=== PATIENT | male | born 1940 | race Caucasian/White ===

== ENCOUNTER 2017-11-25 16:52 | Emergency (ER) | payer MEDICARE ==
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
[2017-11-25 18:16] LABS: Basophils % (A) 0 %; Eosinophils # (A) 0.1 k/uL (0-0.7); Eosinophils % (A) 1 %; HCT 45.3 % (39.0-53.0); HGB 15.1 gm/dL (13.0-17.5); Lymphocytes # (A) 1.3 k/uL (1.0-4.8); Lymphocytes % (A) 14 %; MCH 29.9 pg (25.0-35.0); MCHC 33.3 g/dL (31.0-37.0); MCV 89.9 fL (80.0-100.0); Mean Platelet Volume 7.6; Monocytes # (A) 0.7 k/uL (0-1.0); Monocytes % (A) 7 %; Neutrophils # (A) 7.6 k/uL (1.3-7.7); Neutrophils % (A) 77 %; Platelet Count 372 k/uL (150-450); RBC 5.04 m/uL (4.30-5.90); RDW 13.5 % (11.5-15.5); WBC 9.9 k/uL (3.8-10.6)
[2017-11-25 18:21] LABS: Appearance,Urine Clear (Clear); Bacteria,Urine Rare /hpf; Bilirubin,Urine Negative (Negative); Blood,Urine Negative (Negative); Color,Urine Yellow; Glucose,Urine (UA) Negative (Negative); Hyaline Casts,Urine 4 /lpf (0-2); Ketones,Urine Trace (Negative); Leukocyte Esterase,Urine Trace (Negative); Mucus,Urine Rare /hpf; Nitrite,Urine Negative (Negative); Protein,Urine Negative (Negative); RBC,Urine 2 /hpf (0-5); Specific Gravity,Urine 1.008 (1.001-1.035); Urobilinogen,Urine <2.0 mg/dL (<2.0); WBC,Urine 4 /hpf (0-5)
[2017-11-25 18:27] LABS: Anion Gap 14 mmol/L; Blood Urea Nitrogen 12 mg/dL (9-20); Calcium 10.4 mg/dL (8.4-10.2); Carbon Dioxide 19 mmol/L (22-30); Chloride 106 mmol/L (98-107); Glucose 122 mg/dL (74-99); Sodium 139 mmol/L (137-145)
[2017-11-25 18:28] LABS: Amphetamine Screen,Urine Not Detected (NotDetected); Barbiturate Screen,Urine Not Detected (NotDetected); Benzodiazepines Screen,Urine Not Detected (NotDetected); Cocaine Screen,Urine Not Detected (NotDetected); Methadone Screen, Urine Not Detected (NotDetected); Opiate Screen,Urine Not Detected (NotDetected); Oxycodone Screen, Urine Not Detected (NotDetected); Phencyclidine Screen,Urine Not Detected (NotDetected); Tricyclic Antidepressant,Urine Not Detected (NotDetected); Urn Cannabinoid Scrn Not Detected (NotDetected)
--- NOTE | 2017-11-25 19:57 | CT ---
EXAMINATION TYPE: CT brain wo con DATE OF EXAM: 11/25/2017 COMPARISON: None HISTORY: Altered mental status. CT DLP: 865.7 mGycm Automated exposure control for dose reduction was used. TECHNIQUE: CT scan of the head is performed without contrast. FINDINGS: There is no acute intracranial hemorrhage or midline shift identified. Near CSF attenuate d and likely chronic lacunar injury is seen in the superior most aspect of the left lentiform nucleus on series 5 image 29. Punctate dystrophic calcifications are present within the basal ganglia There is diffuse ventricular and sulcal prominence consistent with diffuse age-related cerebral atrophy. T here is low-attenuation in the periventricular white matter consistent with chronic small vessel isch emic change. The globes are intact and calvarium is also intact. IMPRESSION: 1. No acute intracranial hemorrhage or midline shift. 2. Ventricular prominence is likely due to age-related cerebral atrophy. However in the setting of al tered mental status with no prior for comparison normal pressure hydrocephalus could be considered, l ess likely. 3. Moderate burden nonspecific white matter change, likely on the basis of chronic microangiopathy.
[2017-11-26 08:11] VITALS: RESP 18
[2017-11-26] MEDS ORDERED: METOPROLOL TARTRATE 12.5 MG TAB PO SCH (09:00)
[2017-11-26] MEDS ORDERED: METOPROLOL TARTRATE 12.5 MG TAB PO ONE (10:15)
--- NOTE | 2017-11-26 13:59 | ED ---
Medical Decision Making - Medical Decision Making The patient rested comfortably throughout the morning and afternoon transfer will be completed did fill out the transfer forms. - Lab Data Result diagrams: 11/25/17 18:05 11/25/17 18:05 Lab Results 11/25/17 11/25/17 11/25/17 Range/Units 18:05 18:05 18:05 WBC 9.9 (3.8-10.6) k/uL RBC 5.04 (4.30-5.90) m/uL Hgb 15.1 (13.0-17.5) gm/dL Hct 45.3 (39.0-53.0) % MCV 89.9 (80.0-100.0) fL MCH 29.9 (25.0-35.0) pg MCHC 33.3 (31.0-37.0) g/dL RDW 13.5 (11.5-15.5) % Plt Count 372 (150-450) k/uL Neutrophils % 77 % Lymphocytes % 14 % Monocytes % 7 % Eosinophils % 1 % Basophils % 0 % Neutrophils # 7.6 (1.3-7.7) k/uL Lymphocytes # 1.3 (1.0-4.8) k/uL Monocytes # 0.7 (0-1.0) k/uL Eosinophils # 0.1 (0-0.7) k/uL Basophils # 0.0 (0-0.2) k/uL Sodium 139 (137-145) mmol/L Potassium 4.0 (3.5-5.1) mmol/L Chloride 106 (98-107) mmol/L Carbon Dioxide 19 L (22-30) mmol/L Anion Gap 14 mmol/L BUN 12 (9-20) mg/dL Creatinine 0.90 (0.66-1.25) mg/dL Est GFR (CKD-EPI)AfAm >90 (>60 ml/min/1.73 sqM) Est GFR (CKD-EPI)NonAf 82 (>60 ml/min/1.73 sqM) Glucose 122 H (74-99) mg/dL Calcium 10.4 H (8.4-10.2) mg/dL Urine Color Yellow Urine Appearance Clear (Clear) Urine pH 5.0 (5.0-8.0) Ur Specific [place] 1.008 (1.001-1.035) Urine Protein Negative (Negative) Urine Glucose (UA) Negative (Negative) Urine Ketones Trace H (Negative) Urine Blood Negative (Negative) Urine Nitrite Negative (Negative) Urine Bilirubin Negative (Negative) Urine Urobilinogen <2.0 (<2.0) mg/dL Ur Leukocyte Esterase Trace H (Negative) Urine RBC 2 (0-5) /hpf Urine WBC 4 (0-5) /hpf Urine Bacteria Rare H (None) /hpf Hyaline Casts 4 H (0-2) /lpf Urine Mucus Rare H (None) /hpf Urine Opiates Screen Not Detected (NotDetected) Ur Oxycodone Screen Not Detected (NotDetected) Urine Methadone Screen Not Detected (NotDetected) Ur Propoxyphene Screen Not Detected (NotDetected) Ur Barbiturates Screen Not Detected (NotDetected) U Tricyclic Antidepress Not Detected (NotDetected) Ur Phencyclidine Scrn Not Detected (NotDetected) Ur Amphetamines Screen Not Detected (NotDetected) U Methamphetamines Scrn Not Detected (NotDetected) U Benzodiazepines Scrn Not Detected (NotDetected) Urine Cocaine Screen Not Detected (NotDetected) U Marijuana (THC) Screen Not Detected (NotDetected) Disposition Clinical Impression: Acute psychosis Disposition: TRANSFER TO PSYCH HOSP/UNIT Condition: Stable Referrals: None,Stated [Primary Care Provider] - 1-2 days
[2017-11-26 14:17] VITALS: BP 148/76; PULSE 54; TEMP 98.1
== END 2017-11-26 14:16 ==
LOC: EC 16:52
DX: F23 Brief psychotic disorder (principal); R90.82 White matter disease, unspecified; I25.2 Old myocardial infarction; Z79.1 Long term (current) use of non-steroidal anti-inflammatories (NSAID); Z79.899 Other long term (current) drug therapy
CPT/HCPCS: 36415; 70450; 80048; 80306; 81001; 82075; 85025; 93005; 99285

== ENCOUNTER 2019-11-26 01:11 | Inpatient (IN) | payer MEDICARE ==
[2019-11-26] MEDS ORDERED: SODIUM CHLORIDE 0.9% 1,000 ML IV STA (01:33)
[2019-11-26 01:50] LABS: Basophils % (A) 1 %; Eosinophils # (A) 0.4 k/uL (0-0.7); Eosinophils % (A) 6 %; HGB 14.5 gm/dL (13.0-17.5); Lymphocytes # (A) 0.8 k/uL (1.0-4.8); Lymphocytes % (A) 11 %; MCH 30.8 pg (25.0-35.0); MCHC 32.2 g/dL (31.0-37.0); MCV 95.8 fL (80.0-100.0); Mean Platelet Volume 8.9; Monocytes # (A) 0.5 k/uL (0-1.0); Monocytes % (A) 7 %; Neutrophils # (A) 5.3 k/uL (1.3-7.7); Neutrophils % (A) 73 %; Platelet Count 289 k/uL (150-450); RBC 4.69 m/uL (4.30-5.90); RDW 13.3 % (11.5-15.5); WBC 7.3 k/uL (3.8-10.6)
[2019-11-26 01:59] LABS: Albumin 3.9 g/dL (3.5-5.0); Calcium 9.4 mg/dL (8.4-10.2); INR 0.9 (<1.2); Magnesium 2.3 mg/dL (1.6-2.3); Partial Thromboplastin Time 23.5 sec (22.0-30.0); Potassium 4.2 mmol/L (3.5-5.1); Prothrombin Time 9.7 sec (9.0-12.0); Total Bilirubin 0.9 mg/dL (0.2-1.3); Total Protein 6.7 g/dL (6.3-8.2)
--- NOTE | 2019-11-26 02:14 | ED ---
Dizziness HPI - General Chief Complaint: Dizziness Stated Complaint: Bradycardia Time Seen by Provider: 11/26/19 01:13 Source: patient, EMS, RN notes reviewed, old records reviewed Mode of arrival: EMS Limitations: no limitations - History of Present Illness Initial Comments: This is a 79-year-old male DF for evaluation patient brought to ER for evaluat ion regards to dizziness and not feeling well. Patient was called EMS. Patient's the ear. Patient has a chest pain no headache no shortness of breath. Symptoms started tonight with been persistent. Patient states he recent hospitalization of unsure why similar symptoms but not this hospital. No new medications. No recent travel history or sick contacts no fevers MD Complaint: dizziness, lightheadedness -: hour(s) Timing: sudden onset, intermittent Description: lightheadedness, near-syncope History of Same: Yes History of Trauma: No Severity: moderate Improves With: nothing Associated Symptoms: weakness - Related Data Home Medications Medication Instructions Recorded Confirmed Meloxicam 15 mg PO DAILY 11/25/17 11/25/17 Metoprolol Tartrate [Lopressor] 12.5 mg PO BID 11/25/17 11/25/17 niCARdipine HCL 60 mg PO TID 11/25/17 11/25/17 Allergies Allergy/AdvReac Type Severity Reaction Status Date / Time No Known Allergies Allergy Unverified 11/25/17 17:36 Review of Systems ROS Statement: Those systems with pertinent positive or pertinent negative responses have been documented in the HPI. ROS Other: All systems not noted in ROS Statement are negative. Past Medical History Past Medical History: CVA/TIA, Myocardial Infarction ([place]) Additional Past Medical History / Comment(s): [place] x 3, CVA x 3 History of Any Multi-Drug Resistant Organisms: None Reported Past Surgical History: Heart Catheterization, Heart Catheterization With Stent Past Psychological History: No Psychological Hx Reported Smoking Status: Former smoker Past Alcohol Use History: None Reported Past Drug Use History: None Reported General Exam Limitations: no limitations General appearance: alert, in no apparent distress Head exam: Present: atraumatic, normocephalic, normal inspection Eye exam: Present: normal appearance, PERRL, EOMI. Absent: scleral icterus, conjunctival injection, periorbital swelling ENT exam: Present: normal exam, mucous membranes moist Neck exam: Present: normal inspection. Absent: tenderness, meningismus, lymphadenopathy Respiratory exam: Present: normal lung sounds bilaterally. Absent: respiratory distress, wheezes, rales, rhonchi, stridor Cardiovascular Exam: Present: normal rhythm, bradycardia, normal heart sounds. Absent: systolic murmur, diastolic murmur, rubs, gallop, clicks GI/Abdominal exam: Present: soft, normal bowel sounds. Absent: distended, tenderness, guarding, rebound, rigid Extremities exam: Present: normal inspection, full ROM, normal capillary refill. Absent: tenderness, pedal edema, joint swelling, calf tenderness Back exam: Present: normal inspection Neurological exam: Present: alert, oriented X3, CN II-XII intact Psychiatric exam: Present: normal affect, normal mood Skin exam: Present: warm, dry, intact, normal color. Absent: rash Course Vital Signs 11/26/19 11/26/19 11/26/19 01:12 01:23 01:26 Temperature 97.8 F Pulse Rate 58 L 56 L Pulse Rate [ 52 L Refrigerator Tester ] Respiratory 16 16 Rate Blood Pressure 109/61 98/60 O2 Sat by Pulse 99 99 Oximetry 11/26/19 11/26/19 11/26/19 01:30 01:45 02:02 Temperature Pulse Rate 54 L 51 L 47 L Pulse Rate [ Refrigerator Tester ] Respiratory 16 16 16 Rate Blood Pressure 100/58 105/61 110/60 O2 Sat by Pulse 97 98 98 Oximetry 11/26/19 02:16 Temperature Pulse Rate 52 L Pulse Rate [ Refrigerator Tester ] Respiratory 16 Rate Blood Pressure 121/68 O2 Sat by Pulse 100 Oximetry - Reevaluation(s) Reevaluation #1: 11/26/19 02:20 Medical records reviewed Reevaluation #2: 11/26/19 02:20 Patient symptoms including heart rate and blood pressure continued to improve here in the ER - Consultations Consultation #1: Spoke with Dr. Gu who agrees to admit for sound EKG Findings - EKG Comments: EKG Findings:: EKG is bradycardia 54 ME 156 QRS 90 QTC 392 rhythm of sinus on EKG as well as monitoring Medical Decision Making - Medical Decision Making 79 male DF for evaluation of dizziness and not feeling well, lightheadedness brought in by EMS. Patient found to be significantly bradycardic by EMS in the 30s was given atropine improved patient having here in the 60s blood pressure 110 systolic patient be admitted for cardiology evaluation regarding bradycardia - Lab Data Result diagrams: 11/26/19 01:35 11/26/19 01:35 Lab Results 11/26/19 11/26/19 11/26/19 Range/Units 01:35 01:35 01:35 WBC 7.3 (3.8-10.6) k/uL RBC 4.69 (4.30-5.90) m/uL Hgb 14.5 (13.0-17.5) gm/dL Hct 45.0 (39.0-53.0) % MCV 95.8 (80.0-100.0) fL MCH 30.8 (25.0-35.0) pg MCHC 32.2 (31.0-37.0) g/dL RDW 13.3 (11.5-15.5) % Plt Count 289 (150-450) k/uL Neutrophils % 73 % Lymphocytes % 11 % Monocytes % 7 % Eosinophils % 6 % Basophils % 1 % Neutrophils # 5.3 (1.3-7.7) k/uL Lymphocytes # 0.8 L (1.0-4.8) k/uL Monocytes # 0.5 (0-1.0) k/uL Eosinophils # 0.4 (0-0.7) k/uL Basophils # 0.0 (0-0.2) k/uL PT 9.7 (9.0-12.0) sec INR 0.9 (<1.2) APTT 23.5 (22.0-30.0) sec Sodium 138 (137-145) mmol/L Potassium 4.2 (3.5-5.1) mmol/L Chloride 109 H (98-107) mmol/L Carbon Dioxide 22 (22-30) mmol/L Anion Gap 7 mmol/L BUN 16 (9-20) mg/dL Creatinine 0.94 (0.66-1.25) mg/dL Est GFR (CKD-EPI)AfAm 89 (>60 ml/min/1.73 sqM) Est GFR (CKD-EPI)NonAf 77 (>60 ml/min/1.73 sqM) Glucose 143 H (74-99) mg/dL Calcium 9.4 (8.4-10.2) mg/dL Phosphorus 3.0 (2.5-4.5) mg/dL Magnesium 2.3 (1.6-2.3) mg/dL Total Bilirubin 0.9 (0.2-1.3) mg/dL AST 22 (17-59) U/L ALT 10 (4-49) U/L Alkaline Phosphatase 74 (38-126) U/L Total Protein 6.7 (6.3-8.2) g/dL Albumin 3.9 (3.5-5.0) g/dL Critical Care Time Critical Care Time: Yes Total Critical Care Time: 31 Disposition Clinical Impression: Bradycardia, Dizziness, Weakness Disposition: ADMITTED IP TO THIS HOSP Condition: Fair Is patient prescribed a controlled substance at d/c from ED?: No Referrals: None,Stated [Primary Care Provider] - 1-2 days
[2019-11-26] MEDS ORDERED: NITROGLYCERIN SL TABS 0.4 MG TAB SUBLINGUAL PRN (02:18)
[2019-11-26] MEDS ORDERED: ATROPINE SULFATE 0.1 MG/ML 10ML SYRINGE IV PRN (03:04)
[2019-11-26] MEDS: SODIUM CHLORIDE 0.9% 1,000 ML IV SCH ×2 (03:34→09:37)
[2019-11-26] MEDS ORDERED: ACETAMINOPHEN TAB 325 MG TAB PO PRN (03:52)
--- NOTE | 2019-11-26 03:58 | P.HPIM ---
History of Present Illness H&P Date: 11/26/19 Chief Complaint: Presyncope 79-year-old male with history of CVA and CAD status post stents Patient comes in due to sudden onset of feeling dizzy and lightheaded while attempting to take a shower after a long day of packing as he is planning to move. 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 Patient denies any tick bites or recent traveling denies any camping in the o[place] EMS gave the patient some atropine and brought the patient to the ER upon arrival his heartrate was in the range of upper 40s to 50s. EKG was unremarkable except for sinus bradycardia blood work was unremarkable Patient also has that 3 weeks ago he got admitted to a different hospital for a bdominal pain he does not recall any diagnosis he eventually left the hospital AGAINST MEDICAL ADVICE Patient denies any GI bleeding Patient currently feels fine Review of Systems Pertinent positives as noted in HPI. All other systems were reviewed and are negative Past Medical History Past Medical History: CVA/TIA, Myocardial Infarction ([place]) Additional Past Medical History / Comment(s): [place] x 3, CVA x 3 History of Any Multi-Drug Resistant Organisms: None Reported Past Surgical History: Heart Catheterization, Heart Catheterization With Stent Past Psychological History: No Psychological Hx Reported Smoking Status: Former smoker Past Alcohol Use History: None Reported Past Drug Use History: None Reported - Past Family History Family Family Medical History: No Reported History Medications and Allergies Home Medications Medication Instructions Recorded Confirmed Type Meloxicam 15 mg PO DAILY 11/25/17 11/25/17 History Metoprolol Tartrate [Lopressor] 12.5 mg PO BID 11/25/17 11/25/17 History niCARdipine HCL 60 mg PO TID 11/25/17 11/25/17 History Allergies Allergy/AdvReac Type Severity Reaction Status Date / Time No Known Allergies Allergy Unverified 11/25/17 17:36 Physical Exam Vitals: Vital Signs Temp Pulse Pulse Resp BP Pulse Ox 11/26/19 02:16 52 L 16 121/68 100 11/26/19 02:02 47 L 16 110/60 98 11/26/19 01:45 51 L 16 105/61 98 11/26/19 01:30 54 L 16 100/58 97 11/26/19 01:26 52 L 11/26/19 01:23 56 L 16 98/60 99 11/26/19 01:12 97.8 F 58 L 16 109/61 99 Intake and Output 11/25/19 11/25/19 11/26/19 14:59 22:59 06:59 Other: Weight 72.575 kg Constitutional: No acute distress, conversant, pleasant Eyes: Anicteric sclerae, moist conjunctiva, Pupils equal round reactive to light ENMT: NC/AT, Oropharynx clear, no erythema, or exudates Neck: Supple, FROM, no masses, or JVD No carotid bruits No thyromegaly Lungs: Clear to auscultation Clear to percussion Normal respiratory effort, no accessory muscle use Cardiovascular: Heart regular in rate and rhythm, No murmurs, gallops, or rubs No peripheral edema Abdominal: Soft Nontender, no guarding, rebound or rigidity Abdomen moving with respiration Normoactive bowel sounds No hepatomegaly, No splenomegaly No palpable mass No abdominal wall hernia noted Skin: blanching papular and macular rash over the right side of the neck otherwise, Normal temperature, tone, texture, turgor Extremities: 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 compared to the right No digital cyanosis No clubbing Pedal pulses intact and symmetrical Radial pulses intact and symmetrical No calf tenderness Psychiatric: Alert and oriented to person, place and time Appropriate affect fair judgement Neuro Muscles Strength 4/5 in all 4 extremities Sensation to light touch grossly present throughout Cranial nerves II-XII grossly intact No focal sensory deficits Lymphatics: no palpable cervical or supraclavicular , or inguinal lymph nodes Results CBC & Chem 7: 11/26/19 01:35 11/26/19 01:35 Labs: Abnormal Lab Results - Last 24 Hours (Table) 11/26/19 11/26/19 Range/Units 01:35 01:35 Lymphocytes # 0.8 L (1.0-4.8) k/uL Chloride 109 H (98-107) mmol/L Glucose 143 H (74-99) mg/dL Assessment and Plan Assessment: Symptomatic sinus bradycardia Cardiac monitoring EKG reviewed Monitor troponins Cardiology consult Hold patient calcium channel beth Atropine when necessary for heartrate below 45 while awake below 35 while sleeping Electrolytes unremarkable Gentle IV fluid hydration Continue with aspirin for history of CAD and CVA Tylenol for fever or pain Obtain records from recent admission 3 weeks ago CODE STATUS: Full code DVT prophylaxis: Subcu 3 times a day Discussed with: Patient, ER, RN Anticipated length of stay less than [address]: Home A total of 75 minutes was spent on the care of this complex patient more than 50% of the time was spent in counseling and care coordination.
[2019-11-26] MEDS: HEPARIN SODIUM,PORCINE 5,000 UNIT/ML 1 ML VIAL SQ SCH ×2 (09:36→15:55)
--- NOTE | 2019-11-26 09:45 | CONS ---
CONSULTATION CHIEF COMPLAINT: Near-syncope. Mr. Sim is a 79-year-old gentleman with a history of coronary artery disease and valvular heart disease for which he sees a Dr. Choudhury out of town, presented to hospital with a near syncopal event. The patient states that after a busy days work, he was feeling dizzy and as if he was going to pass out. EMS was called and they found that his heart rate was slow, gave him atropine and brought him to our hospital. He was in sinus bradycardia and has remained in sinus bradycardia with him not documented any of episodes of high-grade AV block. At the time of my evaluation, he appears comfortable at rest. Heart rate is 56 beats per minute. Blood pressure is 144/60. His labs have been fairly unremarkable. He had 2 sets of troponins that are negative. I am going to check a TSH on him and D-dimer and I will also obtain a 2D echo. PAST MEDICAL HISTORY: Significant for questionable history of coronary artery disease, valvular heart disease. MEDICATIONS: Medications at home include aspirin, Lopressor 12.5 b.i.d., and nicardipine 60 t.i.d. ALLERGIES: There are no known drug allergies. FAMILY HISTORY: Significant for premature coronary artery disease in his father. SOCIAL HISTORY: He does not smoke, drink, or use drugs. REVIEW OF SYSTEMS: HEENT: Unremarkable. CARDIAC: As described above. RESPIRATORY: As described above. GI: Negative. GENITOURINARY: Negative. ALLERGY: None. SKIN: Negative. MUSCULOSKELETAL: Negative. ENDOCRINE: Negative. DERM: Negative. CONSTITUTIONAL: Negative. ONCOLOGICAL: Negative. TIRE BUILDER: Negative. Rest of the system review is unremarkable. PHYSICAL EXAM: Patient is comfortable at rest. Afebrile. Heart rate is 56 beats per minute. Blood pressure is 120/60, respiratory rate is 16, O2 saturation is 98% on 2 L. There is no jugular venous distention. Carotid upstroke is normal. There is no bruit. Chest exam reveals good air entry bilaterally. Heart exam reveals first and second heart sounds. No gallop. No murmur. Abdomen is soft, nontender. Exam of extremities did not reveal any edema. Peripheral pulses are felt. TIRE BUILDER exam did not reveal focal neurological deficits. ASSESSMENT: 1. Near syncope, rule out cardiac causes. 2. Sinus bradycardia. 3. History of PAD. PLAN: Will ambulate the patient. Continue to watch him on telemetry. Check a TSH. Check an echocardiogram. So far, patient did not have high-grade AV block and does not require a permanent pacemaker. It is unclear why he is on such a large dose of nicardipine and for that matter why he is on metoprolol. If he has hypertension, will find other medications. 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 KO / SUSAN: [id number] /
--- NOTE | 2019-11-26 11:00 | ECHOF ---
Referral Reason:near syncope MEASUREMENTS -------- HEIGHT: 180.3 cm WEIGHT: 67.1 kg BP: RVIDd: 2.9 cm (< 3.3) IVSd: 1.2 cm (0.6 - 1.1) LVIDd: 4.6 cm (3.9 - 5.3) LVPWd: 1.4 cm (0.6 - 1.1) IVSs: 1.4 cm LVIDs: 1.7 cm LVPWs: 1.6 cm LAESV Index (A-L): 21.86 ml/m Ao Diam: 3.3 cm (2.0 - 3.7) AV Cusp: 2.1 cm (1.5 - 2.6) LA Diam: 4.0 cm (2.7 - 3.8) MV EXCURSION: 10.378 mm (> 18.000) MV EF SLOPE: 71 mm/s (70 - 150) EPSS: 1.1 cm MV E Mauricio: 0.75 m/s MV DecT: 291 ms MV A Mauricio: 0.82 m/s MV E/A Ratio: 0.91 RAP: 5.00 mmHg RVSP: 14.67 mmHg FINDINGS -------- Resting bradycardia (HR<60bpm). This was a technically adequate study. The left ventricular size is normal. There is mild concentric left ventricular hypertrophy. Overa ll left ventricular systolic function is normal with, an EF between 55 - 60 %. The diastolic fillin g pattern is normal for the age of the patient 0.61. The right ventricle is normal in size. The left atrial size is normal. Normal LA size by volume 22+/-6 ml/m2. Interatrial and interventricular septum intact. The aortic valve is trileaflet and appears structurally normal. The mitral valve is normal. There is trace mitral regurgitation. The tricuspid valve appears structurally normal. Trace tricuspid regurgitation present. Right heriberto tricular systolic pressure is normal at < 35 mmHg. There is no pulmonic regurgitation present. The aortic root size is normal. IVC Not well visulized. There is no pericardial effusion. CONCLUSIONS -------- 1. There is mild concentric left ventricular hypertrophy. 2. Overall left ventricular systolic function is normal with, an EF between 55 - 60 %. 3. The diastolic filling pattern is normal for the age of the patient 0.61 4. There is trace mitral regurgitation. 5. Trace tricuspid regurgitation present. EMPLOYMENT INTERVIEWER: Shelley Meadows RDCS
[2019-11-26 15:18] VITALS: RESP 18
--- NOTE | 2019-11-26 16:45 | P.DS ---
Providers Date of admission: 11/26/19 02:19 Expected date of discharge: 11/26/19 Attending physician: Sherwin Veronica MD Consults: 11/26/19 02:18 Consult Physician Urgent Consulting Provider: Kenji Farrell Consult Reason/Comments: bradycardia Do you want consulting provider notified?: Yes Primary care physician: Ayaka Choudhury [facility] Course: Patient left the hospital AGAINST MEDICAL ADVICE This is a 79-year-old male with past medical history of coronary artery disease and prior CVA who presented to the hospital with dizziness and lightheadedness and was found to have symptomatic bradycardia with a heart rate in the 40s and 50s. He is maintained on metoprolol and Nicardipine at home. Nicardipine was discontinued upon admission and patient was maintained on telemetry monitoring with a heart rate in the 55. Nursing staff called me stating that patient has his medication in his pocket and is not agreeable to discontinue the medication is actually wanted to take his own medication while in the hospital. He went to the patient's room and had a prolonged discussion with him about risks of the medication in setting of bradycardia and that may worsen his bradycardia or put him into complete heart block which may result in his . Patient said that he has been taking this medication for 35 years and is not willing to stop. He verbalized understanding of the risks. He said that he wants to sign AMA for further details about this hospitalization please refer to the electronic chart. Patient Condition at Discharge: Poor Plan - Discharge Summary Discharge Rx Participant: No New Discharge Prescriptions: No Action niCARdipine HCL 60 mg PO TID Metoprolol Tartrate [Lopressor] 12.5 mg PO BID Aspirin EC [Ecotrin Low Dose] 81 mg PO BID Discharge Medication List Metoprolol Tartrate [Lopressor] 12.5 mg PO BID 11/25/17 [History] niCARdipine HCL 60 mg PO TID 11/25/17 [History] Aspirin EC [Ecotrin Low Dose] 81 mg PO BID 11/26/19 [History] Follow up Appointment(s)/Referral(s): Ayaka Choudhury DO [Primary Care Provider] - Activity/Diet/Wound Care/Special Instructions: Patient will need cab ride at d/c.
[2019-11-26 17:14] VITALS: BP 136/63; PULSE 46; TEMP 98.6
[2019-11-27] MEDS ORDERED: ASPIRIN 325 MG TAB PO SCH (09:00)
== END 2019-11-26 17:40 | disposition left against medical advice (07) | DRG 310 ==
LOC: EC 01:11 → 3SCARD 02:19
PROVIDERS: ADMIT Internal Medicine; ATTEND Internal Medicine
DX: R00.1 Bradycardia, unspecified (principal); I25.10 Atherosclerotic heart disease of native coronary artery without angina pectoris; I25.2 Old myocardial infarction; Z79.1 Long term (current) use of non-steroidal anti-inflammatories (NSAID); Z79.899 Other long term (current) drug therapy; Z82.49 Family history of ischemic heart disease and other diseases of the circulatory system; Z86.73 Personal history of transient ischemic attack (TIA), and cerebral infarction without residual deficits; Z87.891 Personal history of nicotine dependence; Z95.5 Presence of coronary angioplasty implant and graft; I73.9 Peripheral vascular disease, unspecified; Z11.59 Encounter for screening for other viral diseases
CPT/HCPCS: 36415; 80053; 83735; 84100; 84443; 84484; 85025; 85379; 85610; 85730; 93005; 93306; 96360; 96361; 99291

== ENCOUNTER 2020-04-13 00:04 | Emergency (ER) | payer MEDICARE ==
[2020-04-13 00:14] VITALS: RESP 18; TEMP 98.1
--- NOTE | 2020-04-13 00:19 | ED ---
Psych HPI - General Source: patient, RN notes reviewed, old records reviewed Mode of arrival: ambulatory Limitations: no limitations - History of Present Illness MD Complaint: other (Patient denies homicidal or suicidal thoughts) -: unknown Quality: intermittent Improves With: none Worsens With: none Associated Symptoms: denies other symptoms Treatments Prior to Arrival: placed on mental health hold If Self Harm: other (Patient not homicidal or suicidal) <Rene Marr - Last Filed: 04/13/20 02:52> <Juan Toney - Last Filed: 04/13/20 15:12> - General Chief Complaint: Psychiatric Symptoms Stated Complaint: Petition Time Seen by Provider: 04/13/20 00:17 - History of Present Illness Initial Comments: This is a 79-year-old male DF for evaluation patient is also been out of his car presenting for pickup order, patient presents today for evaluation of pickup order by PD for psychiatric evaluation management. (Rene Marr) - Related Data Home Medications Medication Instructions Recorded Confirmed Metoprolol Tartrate [Lopressor] 12.5 mg PO BID 11/25/17 04/13/20 niCARdipine HCL 60 mg PO TID 11/25/17 04/13/20 Aspirin EC [Ecotrin Low Dose] 81 mg PO BID 11/26/19 04/13/20 Folic Acid 1 mg PO DAILY 04/13/20 04/13/20 metHOTREXate sodium [Methotrexate] 10 mg PO Q7D 04/13/20 04/13/20 Allergies Allergy/AdvReac Type Severity Reaction Status Date / Time No Known Allergies Allergy Verified 04/13/20 09:12 Review of Systems ROS Other: All systems not noted in ROS Statement are negative. <Rene Marr - Last Filed: 04/13/20 02:52> ROS Other: All systems not noted in ROS Statement are negative. <Juan Toney - Last Filed: 04/13/20 15:12> ROS Statement: Those systems with pertinent positive or pertinent negative responses have been documented in the HPI. Past Medical History Past Medical History: CVA/TIA, Myocardial Infarction (NE) Additional Past Medical History / Comment(s): NE x 3, CVA x 3 Last Myocardial Infarction Date:: unknown History of Any Multi-Drug Resistant Organisms: None Reported Past Surgical History: Heart Catheterization, Heart Catheterization With Stent Date of Last Stent Placement:: unknown Past Psychological History: No Psychological Hx Reported Smoking Status: Former smoker Past Alcohol Use History: None Reported Past Drug Use History: None Reported - Past Family History Family Family Medical History: No Reported History <Rene Marr - Last Filed: 04/13/20 02:52> General Exam Limitations: no limitations General appearance: alert, in no apparent distress Head exam: Present: atraumatic, normocephalic, normal inspection Eye exam: Present: normal appearance, PERRL, EOMI. Absent: scleral icterus, conjunctival injection, periorbital swelling ENT exam: Present: normal exam, mucous membranes moist Neck exam: Present: normal inspection. Absent: tenderness, meningismus, lymphadenopathy Respiratory exam: Present: normal lung sounds bilaterally. Absent: respiratory distress, wheezes, rales, rhonchi, stridor Cardiovascular Exam: Present: regular rate, normal rhythm, normal heart sounds. Absent: systolic murmur, diastolic murmur, rubs, gallop, clicks GI/Abdominal exam: Present: soft, normal bowel sounds. Absent: distended, tenderness, guarding, rebound, rigid Extremities exam: Present: normal inspection, full ROM, normal capillary refill. Absent: tenderness, pedal edema, joint swelling, calf tenderness Back exam: Present: normal inspection Neurological exam: Present: alert, oriented X3, CN II-XII intact Psychiatric exam: Present: normal affect, normal mood Skin exam: Present: warm, dry, intact, normal color. Absent: rash <Rene Marr - Last Filed: 04/13/20 02:52> Course <Rene Marr - Last Filed: 04/13/20 02:52> Vital Signs 04/13/20 04/13/20 00:12 11:34 Temperature 98.1 F 98.1 F Pulse Rate 57 L 60 Respiratory 18 18 Rate Blood Pressure 154/83 127/71 O2 Sat by Pulse 95 99 Oximetry - Reevaluation(s) Reevaluation #1: 04/13/20 02:52 Medical records reviewed (Rene Marr) Medical Decision Making <Juan Toney - Last Filed: 04/13/20 15:12> - Medical Decision Making Patient seen by mental health services with plan for discharge. Patient reevaluated by myself, Dr. Toney. Patient denies any suicidal or homicidal thoughts. Patient is agreeable with follow-up as directed. (Juan Toney) - Lab Data Lab Results 04/13/20 Range/Units 11:50 Coronavirus (PCR) Not Detected (Not Detectd) Disposition <Rene Marr - Last Filed: 04/13/20 02:52> Is patient prescribed a controlled substance at d/c from ED?: No Time of Disposition: 15:12 <Juan Toney - Last Filed: 04/13/20 15:12> Clinical Impression: No abnormality detected on mental health assessment Disposition: HOME SELF-CARE Condition: Stable Instructions (If sedation given, give patient instructions): Depression (ED) Additional Instructions: Please follow-up with the court as directed. Please also follow-up with mental health services as directed. Return for thoughts of self-harm or harming others, worsening symptoms or other concerns. Referrals: Ayaka Choudhury DO [Primary Care Provider] - 1-2 days
[2020-04-13 11:35] VITALS: BP 127/71; PULSE 60
[2020-04-13] MEDS ORDERED: METOPROLOL TARTRATE 12.5 MG TAB PO SCH (21:00)
[2020-04-13] MEDS ORDERED: ASPIRIN 81 MG PO SCH (21:00)
[2020-04-14] MEDS ORDERED: FOLIC ACID 1 MG TAB PO SCH (09:00)
== END 2020-04-13 15:58 | disposition home or self-care (01) ==
LOC: EC 00:04
DX: Z71.1 Person with feared health complaint in whom no diagnosis is made (principal); I25.2 Old myocardial infarction; Z20.828 Contact with and (suspected) exposure to other viral communicable diseases; Z79.82 Long term (current) use of aspirin; Z79.899 Other long term (current) drug therapy; Z87.891 Personal history of nicotine dependence; Z86.73 Personal history of transient ischemic attack (TIA), and cerebral infarction without residual deficits; Z95.5 Presence of coronary angioplasty implant and graft
CPT/HCPCS: 82075; 87635; 99284